=== PATIENT | male | born 1965 | race Caucasian/White ===

== ENCOUNTER → 2019-04-24 | Outpatient (CLI) | payer OTHER ==
--- NOTE | 2019-04-24 14:35 | FL ---
EXAMINATION TYPE: FL arthrogram shoulder LT fluoroscopic-guided arthrogram injection. DATE OF EXAM: 04/24/2019 HISTORY: PROCEDURES: 1. fluoroscopy. 2. arthrogram. 1min 45 sec fl time, 5 cc isovue 370 injected lt shoulder, .1 cc gadovist injected TECHNIQUE: The procedure, risks, and alternatives, were discussed with the patient, who requested that [address] The consent form was signed, and teach-back occurred. The site/side of the procedure was marked with a line with participation by the patient. The accompan naren paperwork was verified for consistency. Medication reconciliation was performed by ancillary personnel. A critical pause was performed with a ssisting personnel just prior to the procedure, and the patient's identity was confirmed using 2 iden tifiers. Imaging guidance was utilized to select the precise skin entry point just prior to the procedure. The was prepped and draped in the usual sterile fashion and local 1% lidocaine anesthesia was instill ed. Under fluoroscopic guidance, a 22 gauge spinal needle was introduced into the left glenohumeral joint. Appropriate needle tip position was confirmed after a small amount of contrast injection. Approximately 10 ml of a mixture of Omnipaque 370 iodinated contrast and gadolinium this 0.1 cc was i njected into the glenohumeral joint. The needle was then removed. The patient tolerated the procedure well. A post-procedure note was placed into the medical record. There was no immediate complication. After the procedure, the patient's condition was unchanged. Estimated blood loss was minimal. IMPRESSION: Technically successful pre-MRI left shoulder arthrogram injection for MRI. No immediate complication.
== END | disposition home or self-care (01) ==
LOC: RADFLMAIN 12:45
PROVIDERS: ATTEND Family Medicine
DX: M25.512 Pain in left shoulder (principal)
CPT/HCPCS: 23350; 73040; 73222; J2001; A9585; Q9967

== ENCOUNTER 2020-08-09 11:08 | Emergency (ER) | payer OTHER ==
[2020-08-09 11:14] VITALS: TEMP 97.9
--- NOTE | 2020-08-09 11:54 | XR ---
EXAMINATION TYPE: XR chest 2V DATE OF EXAM: 08/09/2020 COMPARISON: NONE TECHNIQUE: PA and lateral views submitted. HISTORY: Shortness of breath FINDINGS: The lungs are clear and there is no pneumothorax, pleural effusion, or focal pneumonia. Increased i nterstitial changes. Heart size normal. Biapical pleural thickening. No pleural effusion or pneumotho rax. Hyperinflation suggests COPD. IMPRESSION: 1. Interstitial infiltrates correlate for interstitial pneumonia..
--- NOTE | 2020-08-09 11:57 | ED ---
General Adult HPI - General Chief complaint: Shortness of Breath Stated complaint: SOB,cough,COVID + Time Seen by Provider: 08/09/20 11:49 Source: patient Mode of arrival: ambulatory Limitations: no limitations - History of Present Illness Initial comments: 54-year-old male presents to the emergency room with a chief complaint of cough and congestion. States he tested positive for occult blood on 08/01/20 and he reports feeling symptomatically for the last several days. States he has mild generalized myalgias with some fatigue. Reports a nonproductive cough and reports occasional exertional dyspnea but denies any chest pain. Does report chills but no fevers at home. Denies any nausea or vomiting but does have slight diarrhea. Denies any abdominal or back pain. States he is otherwise eating and drinking without difficulties. Patient states he does not want to be admitted and is only looking for steroids. - Related Data Previous Rx's Medication Instructions Recorded Azithromycin [Zithromax Z-pack (6 0 mg PO DIRECTED #1 pack 08/09/20 tabs)] Dexamethasone [Decadron] 6 mg PO DAILY #7 tablet 08/09/20 Allergies Allergy/AdvReac Type Severity Reaction Status Date / Time No Known Allergies Allergy Verified 08/09/20 11:14 Review of Systems ROS Statement: Those systems with pertinent positive or pertinent negative responses have been documented in the HPI. ROS Other: All systems not noted in ROS Statement are negative. Past Medical History Additional Past Medical History / Comment(s): Covid 08/17 History of Any Multi-Drug Resistant Organisms: None Reported Past Surgical History: Orthopedic Surgery Additional Past Surgical History / Comment(s): rt knee Past Psychological History: No Psychological Hx Reported Smoking Status: Former smoker Past Alcohol Use History: Occasional Past Drug Use History: None Reported General Exam Limitations: no limitations General appearance: alert, in no apparent distress Head exam: Present: atraumatic, normocephalic, normal inspection Eye exam: Present: normal appearance, PERRL, EOMI Pupils: Present: normal accommodation ENT exam: Present: normal exam, normal oropharynx, mucous membranes moist, TM's normal bilaterally, normal external ear exam Neck exam: Present: normal inspection, full ROM. Absent: tenderness Respiratory exam: Present: normal lung sounds bilaterally, rales (Mild, bilateral diffuse crackles.). Absent: respiratory distress, wheezes, rhonchi, stridor, chest wall tenderness, accessory muscle use Cardiovascular Exam: Present: regular rate, normal rhythm, normal heart sounds GI/Abdominal exam: Present: soft. Absent: distended, tenderness, guarding, rebound Extremities exam: Present: normal inspection, full ROM, normal capillary refill. Absent: tenderness, pedal edema, joint swelling Back exam: Present: normal inspection, full ROM. Absent: tenderness, CVA tenderness (R), CVA tenderness (L) Neurological exam: Present: alert, oriented X3 Psychiatric exam: Present: normal affect, normal mood Skin exam: Present: warm, dry, intact, normal color Course Vital Signs 08/09/20 11:11 Temperature 97.9 F Pulse Rate 99 Respiratory 20 Rate Blood Pressure 102/66 O2 Sat by Pulse 92 L Oximetry Medical Decision Making - Medical Decision Making 54-year-old male presents to the emergency department with a chief complaint of cough and congestion. On physical examination, patient does not appear to be in respiratory distress. His oxygen saturation is 92-93% at rest. X-ray reveals interstitial pneumonia. I did offer laboratory workup including a d-dimer., I also offered EKGs, patient declined. Patient states she is only looking for some steroids. I will discharge him with 6 mg of oral Decadron as well as azithromycin. Strict return parameters were thoroughly discussed the patient is understandable. Case discussed with physician. Disposition Clinical Impression: Pneumonia due to COVID-19 virus Disposition: HOME SELF-CARE Condition: Stable Instructions (If sedation given, give patient instructions): Coronavirus Disease 2019 (COVID-19) Additional Instructions: Quarantine for 10 days starting from the day of testing. Take prescribed medication as directed. Return to emergency department if symptoms worsen. Prescriptions: Dexamethasone [Decadron] 6 mg PO DAILY #7 tablet Azithromycin [Zithromax Z-pack (6 tabs)] 0 mg PO DIRECTED #1 pack Is patient prescribed a controlled substance at d/c from ED?: No Referrals: Marvin Llamas MD [Primary Care Provider] - 1-2 days Time of Disposition: 12:09
[2020-08-09 12:35] VITALS: BP 117/73; PULSE 86; RESP 18
== END 2020-08-09 12:35 | disposition home or self-care (01) ==
LOC: EC 11:08
DX: U07.1 COVID-19 (principal); J12.82 Pneumonia due to coronavirus disease 2019; Z87.891 Personal history of nicotine dependence
CPT/HCPCS: 71046; 99285